=== PATIENT | female | born 1995 | race African-American/Black ===

== ENCOUNTER 2017-01-31 17:41 | Emergency (ER) | payer SELFPAY ==
[2017-01-31 17:53] VITALS: BP 114/76; PULSE 52; TEMP 98.6; BMI 34.4
[2017-01-31] MEDS ORDERED: KETOROLAC TROMETHAMINE 60 MG/2 ML VIAL IM ONE (18:40)
--- NOTE | 2017-01-31 18:52 | PDOC ---
History of Present Illness - General Chief Complaint: Edema Stated Complaint: LEFT LOWER GUM SWELLING/PAIN Time Seen by Provider: 01/31/17 17:57 History Source: Patient Exam Limitations: No Limitations Past History - Past Medical History Allergies/Adverse Reactions: Allergies Allergy/AdvReac Type Severity Reaction Status Date / Time Penicillins Allergy Verified 01/31/17 17:50 Home Medications: Ambulatory Orders Clindamycin [Cleocin -] 300 mg PO TID #21 capsule 01/31/17 Tramadol HCl 50 mg PO TID #10 tablet MDD 3 01/31/17 Other medical history: DENIES. - Psycho/Social/Smoking Cessation Hx Suicidal Ideation: No Smoking History: Never smoked *Physical Exam - Vital Signs Last Vital Signs Temp Pulse Resp BP Pulse Ox 98.6 F 52 L 19 114/76 97 01/31/17 17:50 01/31/17 17:50 01/31/17 17:50 01/31/17 17:50 01/31/17 17:50 *DC/Admit/Observation/Transfer Diagnosis at time of Disposition: Tooth ache - Discharge Dispostion Admit: No - Prescriptions Prescriptions: Clindamycin [Cleocin -] 300 mg PO TID #21 capsule Tramadol HCl 50 mg PO TID #10 tablet MDD 3 - Patient Instructions Printed Discharge Instructions: DI for Dental Pain Additional Instructions: You have dental pain. It is important that you follow up with a dentist. You can try calling Dr. Omar Torrez DDS. His office is located at [address] [place] [address]. His phone number is [phone]. If they do not accept your insurance, [facility] and [facility] both have dental clinics. You were prescribed antibiotics. Take the medication as prescribed even if you feel better. Take 600mg of ibuprofen every 6 hours for pain and swelling. You were prescribed Tramadol as needed for break through pain. Do not drive after taking this mediction as it may make you sleepy. Do warm water salt gargles. Ice the effected area 2-3 times a day for 20 minutes. Return to the ED if you have worsening pain, fevers, chills, or any changes in your symptoms.
[2017-01-31] MEDS ORDERED: KETOROLAC TROMETHAMINE 60 MG/2 ML VIAL ONE (18:54)
== END 2017-01-31 19:13 | disposition home or self-care (01) ==
LOC: JERFT 17:41
PROC: 3E0233Z Introduction of Anti-inflammatory into Muscle, Percutaneous Approach (ICD-10-PCS; principal; 2017-01-31)
DX: K08.89 Other specified disorders of teeth and supporting structures (principal)
CPT/HCPCS: 99281-25